=== PATIENT | female | born 1955 | race Caucasian/White ===

== ENCOUNTER → 2021-05-19 | Outpatient (CLI) | payer MEDICARE, OTHER ==
--- NOTE | 2021-05-19 16:00 | MR ---
EXAMINATION TYPE: MR shoulder RT wo con DATE OF EXAM: 05/19/2021 COMPARISON: Plain film 04/22/2021 from outside institution HISTORY: Pain in right shoulder TECHNIQUE: Multiplanar, multisequence imaging of the right shoulder is performed without contrast. FINDINGS: There is some artifact on the exam. Rotator Cuff: Rotator cuff shows some abnormal increased signal, thickening, there is no full thickne ss tear, undersurface shows some fluid signal, coronal image #12 series 4 1 which may represent a sma ll undersurface tear Acromioclavicular Joint: There is arthropathy changes causing mass effect on the musculotendinous pepe ction of supraspinatus. Distal acromial spur is also present, some fluid signal present in the subacr omial subdeltoid bursa Glenohumeral Joint: Intact, there is some remodeling present Labrum: Bony labrum shows some possible geode formation, axial image 10 series 301, the remodeling ma y be accompanied with some articular cartilage loss, and is remodeling of the humeral head Biceps Tendon: The long head of biceps tendon shows a normal position, some fluid signal is present a long the tendon Bone marrow signal: There are pseudocysts are present within the humeral head Other: No additional significant abnormality is appreciated. IMPRESSION: There is likely some tendinosis, tendinopathy, possible partial undersurface tear, correlate for impi ngement. Osteoarthritic changes are present.
== END | disposition home or self-care (01) ==
LOC: RADMRIMAIN 14:40
PROVIDERS: ATTEND Orthopaedic Surgery
DX: M19.011 Primary osteoarthritis, right shoulder (principal)

== ENCOUNTER 2021-07-30 08:44 | Day surgery (SDC) | payer MEDICARE, OTHER ==
[2021-07-28 08:44] VITALS: BMI 18.7
--- NOTE | 2021-07-29 15:13 | HP ---
HISTORY AND PHYSICAL REASON FOR ADMISSION: Surgery scheduled 07/30/2021 HISTORY OF PRESENT ILLNESS: Linda Ludwig is a 66-year-old patient seen with progressive right shoulder pain. We discussed options for treatment. She elected to proceed with right shoulder arthroscopy. Consent obtained. PAST MEDICAL HISTORY: Anxiety. PAST SURGICAL HISTORY: Hand surgery. MEDICATIONS: Ambien, Xanax. ALLERGIES: None. SOCIAL HISTORY: Denies tobacco use. PHYSICAL EVALUATION OF THE RIGHT SHOULDER: Flexion is 90 degrees, abduction 70 degrees, external rotation is 30 degrees with pain and weakness. Tenderness along the anterior lateral acromion and rotator cuff insertion. Impingement positive at 90 degrees. Cross-body adduction sign is positive. Drop-arm sign is positive. Distal neurovascular exam is intact. RADIOGRAPHS: Radiographs of the right shoulder revealed a type 2 acromion, acromioclavicular joint osteoarthritis and cystic changes of the greater tuberosity. Right shoulder MRI revealed a partial rotator cuff tear along with impingement and acromioclavicular joint osteoarthritis. IMPRESSION: 1. Right shoulder impingement with partial rotator cuff tear. 2. Right shoulder acromioclavicular joint osteoarthritis. PLAN: Right shoulder arthroscopy with subacromial decompression, possible arthroscopic rotator cuff repair, Abhi procedure and debridement. Surgery scheduled 07/30/2021. MMODL / IJN: [id number] /
[~2021-07-30 08:44] MED LIST: DEXAMETHASONE SOD PHOSPHATE 4 MG/ML 1 ML VIAL IV ONE; HYDROmorphone 0.5 MG/0.5 ML SYRINGE IVP PRN; LACTATED RINGERS 1,000 ML IV SCH; LIDOCAINE 1% (10MG/ML) FOR IV START INTRADERMA PRN; METOCLOPRAMIDE 5 MG/ML 2 ML VIAL IVP PRN; ONDANSETRON 4 MG/2 ML VIAL IVP ONE
[2021-07-30 09:30] VITALS: RESP 16
[2021-07-30] MEDS ORDERED: MIDAZOLAM 2 MG/2 ML VIAL IVP ONE ×2 (10:15→10:17)
[2021-07-30] MEDS ORDERED: DEXAMETHASONE SOD PHOSPHATE 4 MG/ML 1 ML VIAL ONE (10:50)
[2021-07-30] MEDS ORDERED: fentaNYL (PF) 50 MCG/ML 2 ML AMP ONE (10:50)
[2021-07-30] MEDS ORDERED: SUCCINYLCHOLINE CHLORIDE 100 MG/5 ML SYR IV ONE (10:50)
[2021-07-30] MEDS ORDERED: MIDAZOLAM 2 MG/2 ML VIAL ONE (10:50)
[2021-07-30] MEDS ORDERED: GLYCOPYRROLATE 0.2 MG/ML 2 ML VIAL ONE (10:50)
[2021-07-30] MEDS ORDERED: PROPOFOL 10 MG/ML 20 ML VIAL IV ONE (10:50)
[2021-07-30] MEDS ORDERED: ROPIVACAINE 5 MG/ML 30 ML VIAL ONE (10:50)
[2021-07-30] MEDS ORDERED: LACTATED RINGERS 1,000 ML IV ONE (11:15)
--- NOTE | 2021-07-30 12:31 | P.OP ---
Date of Procedure: 07/30/21 Preoperative Diagnosis: Right shoulder impingement Postoperative Diagnosis: 1. Right shoulder rotator cuff tear 2. Right shoulder impingement 3. Right shoulder acromioclavicular joint osteoarthritis 4. Right shoulder partial long head biceps tendon tear 5. 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 Right shoulder arthroscopic rotator cuff repair 2. Right shoulder arthroscopic subacromial decompression 3. Right shoulder arthroscopic Abhi procedure 4. Right shoulder arthroscopic biceps tenotomy 5. Right shoulder arthroscopic chondroplasty glenoid fossa Implants: 14.75 Arthrex swivel lock anchor Anesthesia: GETA, regional (Interscalene block) Surgeon: Blayne Davies [employer] Sales Representative #1: Ming Thakkar Estimated Blood Loss (ml): 11 Pathology: none sent Condition: stable Disposition: PACU Indications for Procedure: 66-year-old patient seen with progressive right shoulder pain. After treatment options were discussed, she elected to proceed with arthroscopy. Operative Findings: See description of procedure Description of Procedure: Patient underwent an interscalene block by department of anesthesia. The patient was then taken to the operative suite. The patient underwent a general anesthetic by the department of anesthesia. The patient was placed into a lateral position and secured. There was appropriate padding of the bony prominence. Right shoulder was then prepped and draped in normal sterile orthopedic fashion. We placed the extremity in 10 pounds of longitudinal traction. A posterior incision was now made for a posterior working portal site. The trocar and cannula were inserted into the glenohumeral joint. Arthroscopy was initiated. Spinal needle was now inserted anteriorly, to ascertain the anterior working portal site. An incision was now made in that area, a trocar was inserted followed by a probe. There was partial tearing and hyperemia involving long head biceps tendon. There were grade 2/3 chondromalacia changes of the glenoid fossa with a large osteochondral flap tear centrally. There were grade 2 chondromalacia changes of the humeral head. The labrum appeared stable. I performed an arthroscopic biceps tenotomy. I performed a chondroplasty of the glenoid fossa. The residual osteochondral surface was stable again noting grade 2/3 chondromalacia of the glenoid fossa. I again probe the labrum and it was found to be stable. Instruments were now removed from the glenohumeral joint. Utilizing the posterior working portal site, the trocar and cannula were inserted into the subacromial space. Arthroscopy initiated. I made an incision 2 fingerbreadths lateral to the acromion. I introduced my trocar followed by my ArthroCare ablator. I now began ablating thick subacromial bursal tissue, which exposed the undersurface of the anterior acromion. There was diminished subacromial space. There was a very prominent anterior acromion. A motorized bur was introduced and a subacromial decompression was performed. I also excised some osteophytes off the inferior aspect of the distal clavicle. The AC joint was visualized and noted to be fairly arthritic. The motorized bur was introduced in the anterior portal site and a Abhi procedure was performed without difficulty, decompressing the AC joint nicely. I turned my attention to the rotator cuff. There was significant partial tearing along the anterior aspect of the distal supraspinatus. Upon probing the area there was a full- thickness perforation present. I debrided the margins getting down to stable te ndon tissue. The defect measured approximately 11.5 cm and was freely mobile over the footprint. I abraded the footprint with a motorized bur. With the assistance of yamilet ABBASI at passed 2 everted mattress sutures through good bites of rotator cuff tendon. I now punched a hole in the footprint for insertion of an anchor. All 4 limbs of suture were passed through the eyelet of a 4.75 Arthrex swivel lock anchor. I placed the eyelet into the prepunched hole. I held in position while Uli ABBASI tensioned all the sutures and deployed the anchor with good fixation noted. All residual suture limbs were now clipped. We had good compression of the tendon along the entire footprint. Instruments now removed from the portal sites. All portal sites were approximated with nylon suture. Sterile dressings were applied followed by a shoulder sling. Ming ABBASI assisted in this complex case. The patient was awakened, transferred to a bed, and taken to recovery in stable condition.
[2021-07-30 12:38] VITALS: TEMP 97
[2021-07-30] MEDS ORDERED: diphenhydrAMINE 50 MG/ML 1 ML VIAL IVP ONE (12:42)
[2021-07-30 14:10] VITALS: BP 132/81; PULSE 62
--- NOTE | 2021-07-30 20:33 | P.ANPRN ---
Procedure Note - Anesthesia - Nerve Block Performed Right Interscalene Single Time Out Performed: Yes Date of Procedure: 07/30/21 Procedure Start Time: 10:15 Procedure Stop Time: : Location of Patient: PreOp Indication: Acute Post-Operative Pain, Requested by Surgeon Sedation Type: Sedate with meaningful contact maintained Preparation: Sterile Prep Position: Supine Needle Types: Pajunk Needle Gauge: 21 Ultrasound used to visualize needle placement: Yes Ultrasound used to observe medication spread: Yes Blood Aspirated: No Pain Paresthesia on Injection Noted: No Resistance on Injection: Normal Image Stored and Saved: Yes Events: Uneventful and Well Tolerated (ropi .5% 20cc plus dexamethasone 4mg)
== END 2021-07-30 14:31 | disposition home or self-care (01) ==
LOC: OR 08:44
PROVIDERS: ATTEND Orthopaedic Surgery
DX: M75.41 Impingement syndrome of right shoulder (principal); M19.011 Primary osteoarthritis, right shoulder; S46.111A Strain of muscle, fascia and tendon of long head of biceps, right arm, initial encounter; M75.121 Complete rotator cuff tear or rupture of right shoulder, not specified as traumatic; M94.211 Chondromalacia, right shoulder; M25.711 Osteophyte, right shoulder; X58.XXXA Exposure to other specified factors, initial encounter; F41.9 Anxiety disorder, unspecified; Z79.899 Other long term (current) drug therapy; Z98.890 Other specified postprocedural states; Z90.89 Acquired absence of other organs; Z90.49 Acquired absence of other specified parts of digestive tract
CPT/HCPCS: 64415; 76942; 29827; 29826; 29824; 29822; C1713; J2250; J1200; J1100; J0690; J2405; J3010; J2795; J0330; J2704

== ENCOUNTER → 2024-04-09 | Outpatient (CLI) | payer MEDICARE, OTHER ==
--- NOTE | 2024-04-10 09:01 | MR ---
EXAMINATION TYPE: MR shoulder LT wo con DATE OF EXAM: 04/09/2024 1:38 PM COMPARISON: NONE HISTORY: Left shoulder pain x 1 year. TECHNIQUE: Multiplanar multispin echo imaging of the left shoulder was performed. FINDINGS: Rotator cuff : There is thickening and heterogeneity of the supraspinatus tendon without definite tea r compatible with chronic tendinopathy. Remaining constituents of the rotator cuff are intact. Bursa: No bursal effusion or thickening is seen. Musculature: There is no muscular tear, contusion, or atrophy. Acromioclavicular joint : There are mild to moderate degenerative changes of the acromioclavicular anthony int. Subacromial spur resulting in impingement. Osseous structures : Mild cystic degenerative change greater humeral tuberosity. There are no fractur es or regions of abnormal bone marrow signal intensity. Long biceps tendon : The biceps tendon is normally situated within the bicipital groove. No complete or partial biceps tendon tear is present. Glenohumeral Joint fluid : There is no glenohumeral joint effusion. Cartilage and Bone : No focal hyaline cartilage defects are noted. No Hill-Sachs, reverse Hill-Sachs, or bony Bankart lesions are seen. Labrum : There are no SLAP or soft tissue Bankart lesions. No paralabral cysts are seen. OTHER FINDINGS : 2 spot views are seen adjacent to the coracoid measuring 2.8 cm and 9 mm respectivel y. IMPRESSION: 1. Subacromial impingement with changes of chronic tendinopathy however no definitive tear is seen at this time. 2. Loose bodies as noted. [facility], , 04/10/2024 8:59 AM
== END | disposition home or self-care (01) ==
LOC: RADMRIMAIN 13:07
PROVIDERS: ATTEND Orthopaedic Surgery
DX: M25.512 Pain in left shoulder

== ENCOUNTER 2024-09-05 07:50 | Day surgery (SDC) | payer MEDICARE, OTHER ==
[2024-09-03 10:34] VITALS: BMI 18.9
--- NOTE | 2024-09-04 19:26 | HP ---
HISTORY AND PHYSICAL DATE OF SURGERY: 09/05/2024 HISTORY OF PRESENT ILLNESS: Linda Ludwig is a 69-year-old patient seen with progressive left shoulder pain. We discussed options regarding treatment. She elected to proceed with left shoulder arthroscopy. PAST MEDICAL HISTORY: Anxiety. SURGICAL HISTORY: Hand surgery. DAILY MEDICATIONS: 1. Xanax. 2. Ambien. ALLERGIES: None. SOCIAL HISTORY: Denies tobacco use. PHYSICAL EVALUATION OF THE LEFT SHOULDER: Flexion is 150 degrees. Abduction is 130 degrees. External rotation is 40 degrees with pain and weakness. Tenderness along the anterolateral acromion and rotator cuff insertion. Impingement is positive at 90 degrees. Drop-arm sign is positive. Distal neurovascular exam is intact. IMAGING STUDIES: Radiographs of the left shoulder revealed a type 2 acromion. Moderate acromioclavicular joint osteoarthritis and cystic changes of the tuberosity. MRI of the left shoulder revealed impingement, acromioclavicular joint osteoarthritis, chronic tendinitis, and loose bodies. IMPRESSION: 1. Left shoulder impingement with partial rotator cuff tear. 2. Left shoulder acromioclavicular joint osteoarthritis with left shoulder loose bodies. PLAN: Left shoulder arthroscopy with subacromial decompression, rotator cuff repair, Abhi procedure, and debridement. MMODL / IJN: [id number] /
[~2024-09-05 07:50] MED LIST changes: -DEXAMETHASONE SOD PHOSPHATE 4 MG/ML 1 ML VIAL IV ONE; -LACTATED RINGERS 1,000 ML IV SCH; -LIDOCAINE 1% (10MG/ML) FOR IV START INTRADERMA PRN; -METOCLOPRAMIDE 5 MG/ML 2 ML VIAL IVP PRN; -ONDANSETRON 4 MG/2 ML VIAL IVP ONE
[2024-09-05] MEDS: IV FLUID CONTINUATION 1,000 ML IV ONE (08:15)
[2024-09-05] MEDS: DEXAMETHASONE SOD PHOSPHATE 4 MG/ML 1 ML VIAL IV ONE (08:37)
[2024-09-05] MEDS: LACTATED RINGERS 1,000 ML IV SCH (08:37)
[2024-09-05] MEDS: ONDANSETRON 4 MG/2 ML VIAL IVP ONE (08:37)
[2024-09-05] MEDS: fentaNYL (PF) 50 MCG/ML 2 ML AMP IVP PRN (08:48)
[2024-09-05] MEDS: MIDAZOLAM 2 MG/2 ML VIAL IV ONE (08:48)
--- NOTE | 2024-09-05 09:00 | P.ANPRN ---
Procedure Note - Anesthesia - Nerve Block Performed Left Interscalene Single Time Out Performed: Yes Date of Procedure: 09/05/24 Procedure Start Time: 08:47 Procedure Stop Time: 08:52 Location of Patient: PreOp Indication: Acute Post-Operative Pain, Analgesia, Requested by Surgeon Sedation Type: Sedate with meaningful contact maintained Preparation: Sterile Prep Position: Sitting Catheter: None Needle Types: Pajunk Needle Gauge: 21 Ultrasound used to visualize needle placement: Yes Ultrasound used to observe medication spread: Yes Injectate: 0.5% Ropivacaine (see comment for volume) (Ropiv 20ml+Decadron 4mg. (Resident)) Blood Aspirated: No Pain Paresthesia on Injection Noted: No Resistance on Injection: Normal Image Stored and Saved: Yes Events: Uneventful and Well Tolerated
[2024-09-05] MEDS ORDERED: fentaNYL (PF) 50 MCG/ML 2 ML AMP ONE (09:27)
[2024-09-05] MEDS ORDERED: MIDAZOLAM 2 MG/2 ML VIAL ONE (09:27)
[2024-09-05] MEDS ORDERED: PHENYLEPHRINE 10 MG/ML VIAL ONE (09:27)
[2024-09-05] MEDS ORDERED: ROPIVACAINE 5 MG/ML 30 ML VIAL ONE (09:27)
[2024-09-05] MEDS ORDERED: LIDOCAINE 1% INJ 10MG/ML (20 ML MDV) ONE (09:27)
[2024-09-05] MEDS ORDERED: SUCCINYLCHOLINE CHLORIDE 200 MG/10 ML VIAL IV ONE (09:27)
[2024-09-05] MEDS ORDERED: GLYCOPYRROLATE 0.2 MG/ML 2 ML VIAL ONE (09:27)
[2024-09-05] MEDS ORDERED: ROCURONIUM 10 MG/ML (5 ML VIAL) IV ONE (09:27)
[2024-09-05] MEDS ORDERED: PROPOFOL 10 MG/ML 20 ML VIAL IV ONE (09:27)
[2024-09-05] MEDS ORDERED: KETOROLAC 15 MG/ML 1 ML VIAL ONE (09:27)
[2024-09-05] MEDS ORDERED: DEXAMETHASONE SOD PHOSPHATE 4 MG/ML 1 ML VIAL ONE (09:27)
[2024-09-05] MEDS ORDERED: NEOSTIGMINE 1 MG/ML 10 ML VIAL ONE (09:27)
[2024-09-05] MEDS: SODIUM CHLORIDE 0.9% 100 ML with ceFAZolin 2,000 MG IV ONE (09:33)
[2024-09-05] MEDS: LACTATED RINGERS 1,000 ML IV ONE (10:49)
--- NOTE | 2024-09-05 10:56 | P.OP ---
Date of Procedure: 09/05/24 Preoperative Diagnosis: Left shoulder impingement Postoperative Diagnosis: 1. Left shoulder rotator cuff tear 2. Left shoulder impingement 3. 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 Left shoulder partial long head biceps tendon tear 5. Left shoulder superficial labral tear Procedure(s) Performed: 1. Left shoulder arthroscopic rotator cuff repair 2. Left shoulder arthroscopic subacromial decompression 3. Left shoulder arthroscopic microfracture glenoid fossa 4. Left shoulder arthroscopic biceps tenotomy 5. Left shoulder arthroscopic debridement labral tear Implants: 1Arthrex 4.75 swivel lock anchor Anesthesia: GETA, regional (Interscalene block) Surgeon: Blayne Davies [employer] Service Technician #1: Ming Thakkar Estimated Blood Loss (ml): 6 Pathology: none sent Condition: stable Disposition: PACU Indications for Procedure: 69-year-old patient seen with progressive left shoulder pain. After having treatment options discussed, she elected to proceed with arthroscopy. Operative Findings: See description of procedure Description of Procedure: Patient underwent an interscalene block by department of anesthesia. The patient was then taken to the operative suite. The patient underwent a general anesthetic by the department of anesthesia. The patient was placed into a lateral position and secured. There was appropriate padding of the bony pro minence. Left shoulder was then prepped and draped in normal sterile orthopedic fashion. We placed the extremity in 10 pounds of longitudinal traction. A posterior incision was now made for a posterior working portal site. The trocar and cannula were inserted into the glenohumeral joint. Arthroscopy was initiated. Spinal needle was now inserted anteriorly, to ascertain the anterior working portal site. An incision was now made in that area, a trocar was inserted followed by a probe. There was superficial tearing of the superior labrum. There was some partial tearing and hyperemia long head biceps tendon. There was grade III/IV chondromalacia change of the glenoid fossa with 1 area of grade IV chondromalacia centrally. There are grade II/III chondromalacia changes of the humeral head without tears. I debrided the superficial labral tears getting down to stable labral tissue. I performed arthroscopic biceps tenotomy. I introduced a motorized shaver and performed a chondroplasty of the glenoid fossa. I did note an area of exposed bone/grade IV chondromalacia centrally that measured about a centimeter. I introduced a 60 degree microfracture awl and with the assistance of Uli ABBASI I performed a microfracture to the area of exposed bone penetrating the bone with resultant bleeding at the microfracture site. The residual osteochondral surface was stable. The residual labrum was stable. Instruments were now removed from the glenohumeral joint. Utilizing the posterior working portal site, the trocar and cannula were inserted into the subacromial space. Arthroscopy initiated. I made an incision 2 fingerbreadths lateral to the acromion. I introduced my trocar followed by my ArthroCare ablator. I now began ablating thick subacromial bursal tissue, which exposed the undersurface of the anterior acromion. There was diminished subacromial space. There was a very prominent anterior acromion. A motorized bur was introduced and a subacromial decompression was performed. I also excised some osteophytes off the inferior aspect of the distal clavicle. The AC joint was visualized and was noted to be moderately arthritic. I did not think enough to warrant a Abhi procedure. I now turned my attention to the rotator cuff tendon. There was about a 1 cm tear along the anterior aspect of the distal supraspinatus tendon. I debrided the margins getting down to stable tendon tissue. I abraded the footprint with a motorized bur. With the assistance of Uli ABBASI I now passed 2 everted mattress sutures through good bites of rotator cuff tendon. I punched a hole in the footprint area for insertion of an anchor. All 4 limbs of suture were passed through the eyelet of an Arthrex 4.75 swivel lock anchor. I placed the eyelet into the prepunched a hole. I held in position while Uli ABBASI tensioned all 4 limbs of suture and deployed the anchor with good fixation noted. All residual suture limbs were now clipped. We had good compression of the tendon along the entire footprint. Instruments now removed from the portal sites. All portal sites were approximated with nylon suture. Sterile dressings were applied followed by a shoulder sling. Ming ABBASI assisted in all aspects of this case. The patient was awakened, transferred to a bed, and taken to recovery in stable condition.
[2024-09-05 11:15] VITALS: TEMP 97
[2024-09-05 11:25] VITALS: RESP 16
[2024-09-05 12:28] VITALS: BP 115/74; PULSE 64
== END 2024-09-05 12:49 | disposition home or self-care (01) ==
LOC: OR 07:50
PROVIDERS: ATTEND Orthopaedic Surgery
DX: S46.012A Strain of muscle(s) and tendon(s) of the rotator cuff of left shoulder, initial encounter (principal); M19.012 Primary osteoarthritis, left shoulder; F41.9 Anxiety disorder, unspecified; Z87.891 Personal history of nicotine dependence; Z98.890 Other specified postprocedural states; Z90.49 Acquired absence of other specified parts of digestive tract; Z79.899 Other long term (current) drug therapy; X58.XXXA Exposure to other specified factors, initial encounter
CPT/HCPCS: 64415; 29824; 29827; 29828; C1894; C1713 ×2; J2250; J0330; J1100; J2710; J2405; J0690; J2003; J3010; J2795; J1885; J2704; J2371; J1596